=== PATIENT | female | born 2000 ===

== ENCOUNTER 2020-06-26 03:06 | Inpatient (IN) ==
[2020-06-26] MEDS ORDERED: ONDANSETRON 4 MG/2 ML VIAL IV STA (03:54)
[2020-06-26] MEDS ORDERED: HYDROmorphone 2 MG/1 ML VIAL IV STA (03:54)
[2020-06-26 05:04] LABS: Amorphous Crystals,Urine Occasional /HPF (Few); Bacteria,Urine Occasional /HPF (Few); Bilirubin,Urine Negative (Negative); Blood, Urine Negative (Negative); Glucose,Urine (UA) Negative (Negative); Ketones,Urine Negative (Negative); Mucus,Urine Occasional /LPF (Occasional); Nitrite,Urine Negative (Negative); Protein,Urine 30 MG/DL; RBC,Urine 1 /HPF (0-4); Squamous Epithelial Cell,Urine Occasional /HPF (0-10); Urine Appearance CLEAR (Clear); Urine Color Yellow (Yellow); Urine Specific Gravity 1.011 (1.001-1.035); Urine Urobilinogen < 2.0 EU/DL (0.2-1.0)
[2020-06-26 05:12] LABS: Basophils # 0.1 10*3/uL (0.0-0.2); Basophils % 0.4 % (0.0-0.8); Eosinophils # 0.1 10*3/uL (0.0-0.87); Eosinophils % 0.4 % (0.00-10.9); Hemoglobin 13.3 GM/DL (12.0-16.0); Immature Granulocytes % 0.5 %; Immature Granulocytes Absolute 0.07 #; Lymphocytes # 2.2 10*3/uL (1.4-4.0); Mean Corpuscular HGB Conc 32.4 GM/DL (32-36); Mean Corpuscular Volume 92.6 FL (87-102); Mean Platelet Volume 11.8 FL (9.6-12.0); Monocytes % 5.5 % (1.7-12.7); Neutrophils % 77.2 % (38.7-73.9); Platelet Count 255 T/CUMM (130-400); Red Blood Count 4.43 MC/CUMM (3.8-5.5); Red Cell Distribution Width 13.3 % (9.3-17.3)
[2020-06-26 05:19] LABS: INR 1.1; PT Patient Result 11.3 SECS (9.8-11.9)
[2020-06-26 05:38] LABS: Albumin 3.3 G/DL (3.4-5.0); Bilirubin,Total 0.4 MG/DL (0.2-1.0); Osmolality,Calculated 278.4 MOS/KG (273-304); Total Protein 7.8 G/DL (6.4-8.3)
[2020-06-26] MEDS ORDERED: MAGNESIUM HYDROXIDE SUSP 30 ML UDCUP PO PRN (05:45)
[2020-06-26] MEDS ORDERED: ONDANSETRON 4 MG/2 ML VIAL IV PRN (05:45)
[2020-06-26] MEDS ORDERED: SODIUM CHLORIDE 0.9% 1,000 ML IV SCH (05:45)
[2020-06-26] MEDS ORDERED: HYDROmorphone 2 MG/1 ML VIAL IV PRN (05:45)
[2020-06-26] MEDS ORDERED: ceFAZolin 2,000 MG in PREMIX 1 EACH IV ONE ×2 (05:45→06:43)
[2020-06-26 06:44] LABS: PT Patient Result 11.2 SECS (9.8-11.9)
[2020-06-26] MEDS ORDERED: LIDOCAINE 2% 5 ML VIAL ONE (11:55)
[2020-06-26] MEDS ORDERED: ONDANSETRON 4 MG/2 ML VIAL ONE ×2 (11:55→14:03)
[2020-06-26] MEDS ORDERED: propofoL 200 MG/20 ML VIAL IV ONE ×2 (11:55→14:04)
[2020-06-26] MEDS ORDERED: fentaNYL 100 MCG/2 ML VIAL ONE ×2 (11:56→13:22)
[2020-06-26] MEDS ORDERED: MIDAZOLAM 2 MG/2 ML VIAL ONE ×2 (11:56→12:30)
[2020-06-26] MEDS ORDERED: FAMOTIDINE 20 MG/2 ML VIAL IV ONE (12:01)
[2020-06-26] MEDS ORDERED: ROPIVACAINE 0.5% 30 ML VIAL ONE (12:02)
[2020-06-26] MEDS ORDERED: BACITRACIN OINT 0.9 GM PACK TOP ONE (12:06)
[2020-06-26] MEDS ORDERED: LIDOCAINE 1% 5 ML VIAL ONE ×2 (12:14→12:34)
[2020-06-26] MEDS ORDERED: SUCCINYLCHOLINE 200 MG/10 ML VIAL ONE (12:27)
[2020-06-26] MEDS ORDERED: ALBUTEROL INHALER 18 GM INH ONE (13:33)
[2020-06-26] MEDS ORDERED: DEXAMETHASONE 4 MG/1 ML VIAL ONE (14:03)
[2020-06-26] MEDS ORDERED: ROCURONIUM 50 MG/5 ML VIAL IV ONE (14:04)
[2020-06-26] MEDS ORDERED: oxyCODONE IR 5 MG TABLET PO PRN (14:22)
[2020-06-26] MEDS ORDERED: diphenhydrAMINE CAP 25 MG CAPSULE PO PRN (14:22)
[2020-06-26] MEDS ORDERED: MORPHINE 4 MG/1 ML VIAL IV PRN ×2 (14:22)
[2020-06-26] MEDS ORDERED: ALBUTEROL/IPRATROPIUM 3 ML NEB RESP TX ONE (14:40)
[2020-06-26] MEDS: ceFAZolin 2,000 MG in PREMIX 1 EACH IV SCH (21:41)
[2020-06-27] MEDS: ceFAZolin 2,000 MG in PREMIX 1 EACH IV SCH (03:38)
[2020-06-27] MEDS: oxyCODONE IR 5 MG TABLET PO PRN ×2 (03:38→16:01)
[2020-06-27 06:13] LABS: Basophils % 0.1 % (0.0-0.8); Hematocrit 40.5 VOL% (35.7-47.0); Hemoglobin 12.6 GM/DL (12.0-16.0); Immature Granulocytes % 0.5 %; Immature Granulocytes Absolute 0.08 #; Lymphocytes # 1.1 10*3/uL (1.4-4.0); Lymphocytes % 6.6 % (21.3-54.2); Mean Corpuscular HGB Conc 31.1 GM/DL (32-36); Mean Corpuscular Volume 94.8 FL (87-102); Mean Platelet Volume 12.1 FL (9.6-12.0); Monocytes % 6.6 % (1.7-12.7); Neutrophils % 86.2 % (38.7-73.9); Platelet Count 244 T/CUMM (130-400); Red Blood Count 4.27 MC/CUMM (3.8-5.5); White Blood Count 16.1 T/CUMM (4-12)
[2020-06-27 06:33] LABS: Osmolality,Calculated 276.7 MOS/KG (273-304)
[2020-06-27] MEDS ORDERED: FONDAPARINUX 2.5 MG/0.5 ML SYRINGE SUBCUT SCH (08:00)
[2020-06-27 16:51] VITALS: BP 127/63
== END 2020-06-27 17:22 | disposition home or self-care (01) | DRG 493 ==
LOC: N.ED 03:06 → N.EDINP 03:56 → N.3E 05:26
PROVIDERS: ADMIT Orthopaedic Surgery; ATTEND Orthopaedic Surgery